=== PATIENT | female | born 1975 | race American Indian/Alaskan Native ===

== ENCOUNTER 2019-01-29 13:34 | Emergency (ER) | payer MEDICAID, OTHER ==
[2019-01-29] MEDS ORDERED: NACL 0.9% 1000 ML IV ONE (13:43)
--- NOTE | 2019-01-29 13:43 | Emergency Department Report ---
Blank Doc - Documentation Documentation: 44 y/o female presents with dysuria and abdominal pain, lethergy and myalgia. Vitals 101.3 and HR 125 Plan. Sepsis protocol.
[2019-01-29] MEDS ORDERED: TYLENOL PO ONE (13:57)
[2019-01-29] MEDS ORDERED: TYLENOL ONE (14:00)
[2019-01-29 14:31] LABS: Hemoglobin 12.5 gm/dl (10.1-14.3); Mean Corpuscular HGB Conc 34 % (30-34); Mean Corpuscular Volume 84 fl (79-97); Platelet Count 240 K/mm3 (140-440); Red Blood Count 4.42 M/mm3 (3.65-5.03); Red Cell Distribution Width 14.9 % (13.2-15.2)
[2019-01-29 14:50] LABS: Alanine Aminotransferase 12 units/L (7-56); Albumin 4.2 g/dL (3.9-5); BUN/Creatinine Ratio 17; Blood Urea Nitrogen 10 mg/dL (7-17); Calcium 9.3 mg/dL (8.4-10.2); Hemolysis Index 20
[2019-01-29 15:30] LABS: Band Neutrophils # (Manual) 0.5 K/mm3; Basophils % (Manual) 0 % (0.0-1.8); Eosinophils % (Manual) 0 % (0.0-4.3); Monocytes % (Manual) 0 % (0.0-7.3); Total Cells Counted 100
[2019-01-29 15:31] LABS: Ovalocytes Few
[2019-01-29] MEDS ORDERED: NACL 0.9% 1000 ML 2,000 ML ONE (15:47)
[2019-01-29] MEDS ORDERED: ROCEPHIN/NS 1 GM/50 ML 1 GM/50 ML BAG IV ONE (15:55)
[2019-01-29] MEDS ORDERED: MORPHINE IV ONE (15:55)
[2019-01-29] MEDS ORDERED: ZOFRAN IV ONE (15:55)
[2019-01-29 16:02] LABS: Bilirubin,Urine NEG (Negative); Blood,Urine LG (Negative); Color,Urine Yellow (Yellow); Protein,Urine <15 mg/dL mg/dL (Negative); Urobilinogen,Urine < 2.0 mg/dL (<2.0)
--- NOTE | 2019-01-29 16:09 | Emergency Department Report ---
HPI <JHONY MARIE - Last Filed: 01/31/19 15:51> - HPI HPI: 44-year-old -Swedish female presents to the emergency department with a complaint of some lower abdominal pain and lower back pain, along with burning with urination and a fever. The patient was driving from [place] to [place] and says that she held her urine the entire time. When she got home she started having the burning with urination. She woke up with the pains and felt warm. Her daughter checked her temperature and she had a low-grade fever. She denies any significant past medical history. She did not take anything for her symptoms prior to presentation. Her primary care physician is a Dr. Ervin Perez. <ANA ODONNELL Meg - Last Filed: 02/03/19 08:02> - General Chief Complaint: Back Pain/Injury Time Seen by Provider: 01/29/19 13:41 ED Past Medical Hx <JHONY MARIE - Last Filed: 01/31/19 15:51> - Past Medical History Previous Medical History?: No - Surgical History Past Surgical History?: Yes Additional Surgical History: Tubal ligation. - Social History Smoking Status: Never Smoker Substance Use Type: None <ANA ODONNELL S - Last Filed: 02/03/19 08:02> - Medications Home Medications: Home Medications Medication Instructions Recorded Confirmed Last Taken Type HYDROcodone/APAP 5-325 [[place] 1 each PO Q6HR PRN #10 tablet 01/29/19 Unknown Rx 5/325] Ibuprofen [Motrin] 400 mg PO Q8H PRN #20 tablet 01/29/19 Unknown Rx Ondansetron [Zofran Odt] 4 mg PO Q8HR PRN #20 tab.rapdis 01/29/19 Unknown Rx cephALEXin [Keflex] 1,000 mg PO Q12HR #28 cap 01/29/19 Unknown Rx ED Review of Systems ROS: Stated complaint: FEVER Other details as noted in HPI <JHONY MARIE - Last Filed: 01/31/19 15:51> ROS: Stated complaint: FEVER Other details as noted in HPI Constitutional: chills, fever Eyes: denies: eye pain, vision change ENT: denies: ear pain, throat pain Respiratory: denies: cough, shortness of breath Cardiovascular: denies: chest pain, palpitations Gastrointestinal: abdominal pain. denies: vomiting Genitourinary: dysuria. denies: discharge Musculoskeletal: back pain. denies: arthralgia Skin: denies: rash, lesions Neurological: denies: weakness, numbness <ANA ODONNELL - Last Filed: 02/03/19 08:02> Physical Exam - Physical Exam Vital Signs: Vital Signs 01/29/19 01/29/19 01/29/19 13:55 14:01 15:53 Temperature 101.3 F H Pulse Rate 125 H Respiratory 18 18 Rate Blood Pressure 135/83 113/68 Blood Pressure [Left] O2 Sat by Pulse 96 95 Oximetry 01/29/19 01/29/19 01/29/19 16:00 16:15 16:30 Temperature Pulse Rate Respiratory Rate Blood Pressure 111/90 111/90 115/74 Blood Pressure [Left] O2 Sat by Pulse 100 99 99 Oximetry 01/29/19 01/29/19 01/29/19 16:45 17:00 17:19 Temperature Pulse Rate Respiratory Rate Blood Pressure 115/74 105/65 105/65 Blood Pressure [Left] O2 Sat by Pulse 99 99 91 Oximetry 01/29/19 01/29/19 01/29/19 17:30 17:45 18:00 Temperature Pulse Rate Respiratory Rate Blood Pressure 102/56 102/56 102/56 Blood Pressure [Left] O2 Sat by Pulse 99 97 98 Oximetry 01/29/19 01/29/19 01/29/19 18:15 18:30 18:45 Temperature Pulse Rate Respiratory Rate Blood Pressure 110/68 110/68 Blood Pressure [Left] O2 Sat by Pulse 99 99 100 Oximetry 01/29/19 01/29/19 01/29/19 19:05 19:10 19:17 Temperature 98 F 98.5 F Pulse Rate 81 Respiratory 16 Rate Blood Pressure 110/68 Blood Pressure 110/72 [Left] O2 Sat by Pulse 100 99 Oximetry <JHONY MARIE - Last Filed: 01/31/19 15:51> - Physical Exam Vital Signs: Vital Signs 01/29/19 01/29/19 13:55 14:01 Temperature 101.3 F H Pulse Rate 125 H Respiratory 18 18 Rate Blood Pressure 135/83 O2 Sat by Pulse 96 Oximetry Physical Exam: GENERAL: The patient is well-developed well-nourished. HENT: Normocephalic. Atraumatic. Patient has moist mucous membranes. EYES: Extraocular motions are intact. Pupils equal reactive to light bilaterally. NECK: Supple. Trachea is midline. CHEST/LUNGS: Clear to auscultation. There is no respiratory distress noted. HEART/CARDIOVASCULAR: Regular. There is mild to moderate tachycardia. There is no murmur. ABDOMEN: Abdomen is soft, nontender. Patient has normal bowel sounds. There is no abdominal distention. SKIN: Skin is warm and dry. NEURO: The patient is awake, alert, and oriented. The patient is cooperative. The patient has no focal neurologic deficits. The patient has normal speech. MUSCULOSKELETAL: There is no tenderness or deformity. There is no limitation range of motion. There is no evidence of acute injury. BACK: No CVA tenderness to palpation. <ANA ODONNELL - Last Filed: 02/03/19 08:02> ED Course Vital Signs 01/29/19 01/29/19 01/29/19 13:55 14:01 15:53 Temperature 101.3 F H Pulse Rate 125 H Respiratory 18 18 Rate Blood Pressure 135/83 113/68 Blood Pressure [Left] O2 Sat by Pulse 96 95 Oximetry 01/29/19 01/29/19 01/29/19 16:00 16:15 16:30 Temperature Pulse Rate Respiratory Rate Blood Pressure 111/90 111/90 115/74 Blood Pressure [Left] O2 Sat by Pulse 100 99 99 Oximetry 01/29/19 01/29/19 01/29/19 16:45 17:00 17:19 Temperature Pulse Rate Respiratory Rate Blood Pressure 115/74 105/65 105/65 Blood Pressure [Left] O2 Sat by Pulse 99 99 91 Oximetry 01/29/19 01/29/19 01/29/19 17:30 17:45 18:00 Temperature Pulse Rate Respiratory Rate Blood Pressure 102/56 102/56 102/56 Blood Pressure [Left] O2 Sat by Pulse 99 97 98 Oximetry 01/29/19 01/29/19 01/29/19 18:15 18:30 18:45 Temperature Pulse Rate Respiratory Rate Blood Pressure 110/68 110/68 Blood Pressure [Left] O2 Sat by Pulse 99 99 100 Oximetry 01/29/19 01/29/19 01/29/19 19:05 19:10 19:17 Temperature 98 F 98.5 F Pulse Rate 81 Respiratory 16 Rate Blood Pressure 110/68 Blood Pressure 110/72 [Left] O2 Sat by Pulse 100 99 Oximetry - Reevaluation(s) Reevaluation #1: 01/29/19 20:31 CT scan of the abdomen and pelvis reviewed and appreciated. Patient reassessed. Feels improved. Tolerating oral feeds. Patient in no distress. Extensive discussion had with the patient. She reports she is reliable to follow-up in 2- 3 days for repeat checkup/evaluation. Instructed patient and family on how to download the [employer] application on the Smart phone, and search for competitive pricing on prescriptions. The patient is suitable for a trial of oral outpatient antibiotic management, and the primary managing physician, Dr. Odonnell, has already written the patient for prescriptions. <JHONY MARIE - Last Filed: 01/31/19 15:51> Vital Signs 01/29/19 01/29/19 13:55 14:01 Temperature 101.3 F H Pulse Rate 125 H Respiratory 18 18 Rate Blood Pressure 135/83 O2 Sat by Pulse 96 Oximetry <ANA ODONNELL S - Last Filed: 02/03/19 08:02> ED Medical Decision Making - Lab Data Result diagrams: 01/29/19 14:08 01/29/19 14:08 <CYNTHIAJHONY - Last Filed: 01/31/19 15:51> - Lab Data Result diagrams: 01/29/19 14:08 01/29/19 14:08 - Radiology Data Radiology results: report reviewed PROCEDURE: CT ABDOMEN PELVIS W CON TECHNIQUE: HISTORY: abd and back pain, UTI, fever COMPARISONS: FINDINGS: Contrast-enhanced CT of the abdomen and pelvis was performed following the intravenous administration of iodinated contrast. The heart is normal in size. The lung bases appear clear. ABDOMEN: There is mild fatty infiltration of the liver without focal hepatic lesion. The spleen, adrenal glands, pancreas, gallbladder are unremarkable. There is no renal or ureteral calculus. No focal hepatic lesion is seen. There is no small or large bowel obstruction. Pelvis: There is a normal appendix. There is no evidence of diverticulitis. The uterus is unremarkable. No adnexal mass is seen. The urinary bladder is within normal limits. IMPRESSION: ABDOMEN: Mild fatty infiltration of the liver Pelvis: Normal appendix This document is electronically signed by Loyd Wells MD., Jan 29 2019 08:20:17 PM ET Transcribed By: ITZEL Dictated By: LOYD WELLS MD Electronically Authenticated By: LOYD WELLS MD Signed Date/Time: 01/29/192021 - Medical Decision Making Presented with some abdominal/pelvic pain with some radiation towards the back. She presents with a fever and dysuria. Urinalysis does show a urinary tract infection. The patient is also on her menstrual cycle and says that that contributed to her discomfort. Fever resolved with medication. No leukoc ytosis. Vital signs stable throughout her ED course. Patient was given some pain medication, IV fluid resuscitation and antibiotics. Discharged home with pain medication and antibiotics. She has been encouraged to follow up with primary care and return to the ER with any worsening of her symptoms or any acute distress. - Differential Diagnosis UTI, pyelonephritis, appendicitis, <ANA ODONNELL - Last Filed: 02/03/19 08:02> Critical care attestation.: If time is entered above; I have spent that time in minutes in the direct care of this critically ill patient, excluding procedure time. <JHONY MARIE - Last Filed: 01/31/19 15:51> Critical Care Time: No Critical care attestation.: If time is entered above; I have spent that time in minutes in the direct care of this critically ill patient, excluding procedure time. <ANA ODONNELL S - Last Filed: 02/03/19 08:02> ED Disposition Is pt being admited?: No Does the pt Need Aspirin: No <JHONY MARIE - Last Filed: 01/31/19 15:51> Is pt being admited?: No Time of Disposition: 20:03 <ANA ODONNELL S - Last Filed: 02/03/19 08:02> Clinical Impression: Pyelonephritis UTI (urinary tract infection) Qualifiers: Urinary tract infection type: acute cystitis Hematuria presence: with hematuria Qualified Code(s): N30.01 - Acute cystitis with hematuria Disposition: TO HOME OR SELFCARE Condition: Stable Instructions: Urinary Tract Infection in Women (ED), Acute Pyelonephritis (ED) Additional Instructions: Please follow-up with your primary care physician in the next few days. Return to the emergency Department with any worsening of your symptoms or any acute distress. Taking antibiotics as prescribed. You have been prescribed a medication that is sedating and therefore should not be taken prior to driving, working, and responsible for children and in no way should be mixed with alcohol of any quantity. Prescriptions: cephALEXin [Keflex] 1,000 mg PO Q12HR #28 cap Ibuprofen [Motrin] 400 mg PO Q8H PRN #20 tablet PRN Reason: Pain , Severe (7-10) HYDROcodone/APAP 5-325 [[place] 5/325] 1 each PO Q6HR PRN #10 tablet PRN Reason: Pain Ondansetron [Zofran Odt] 4 mg PO Q8HR PRN #20 tab.rapdis PRN Reason: Nausea Referrals: Primary Care Provider, Your [Other] - 2-3 Days
[2019-01-29] MEDS ORDERED: NACL 0.9% 1000 ML 1,000 ML IV ONE (16:23)
[2019-01-29] MEDS ORDERED: TORADOL ONE (16:41)
[2019-01-29] MEDS ORDERED: TORADOL IV ONE (17:58)
[2019-01-29] MEDS ORDERED: NORCO 5/325 PO ONE (18:30)
[2019-01-29 19:21] VITALS: BP 110/72
--- NOTE | 2019-01-29 20:22 | Cat Scan Report ---
PROCEDURE: CT ABDOMEN PELVIS W CON TECHNIQUE: HISTORY: abd and back pain, UTI, fever COMPARISONS: FINDINGS: Contrast-enhanced CT of the abdomen and pelvis was performed following the intravenous admi nistration of iodinated contrast. The heart is normal in size. The lung bases appear clear. ABDOMEN: There is mild fatty infiltration of the liver without focal hepatic lesion. The spleen, adrenal gland s, pancreas, gallbladder are unremarkable. There is no renal or ureteral calculus. No focal hepatic lesion is seen. There is no small or large bowel obstruction. Pelvis: There is a normal appendix. There is no evidence of diverticulitis. The uterus is unremarkable. No adnexal mass is seen. The urinary bladder is within normal limits. IMPRESSION: ABDOMEN: Mild fatty infiltration of the liver Pelvis: Normal appendix This document is electronically signed by Loyd Wells MD., Jan 29 2019 08:20:17 PM ET
[2019-01-29] MEDS ORDERED: MOTRIN PO ONE (20:30)
== END 2019-01-29 19:53 | disposition home or self-care (01) ==
LOC: ED 13:34
DX: N12 Tubulo-interstitial nephritis, not specified as acute or chronic (principal); N39.0 Urinary tract infection, site not specified; Z98.51 Tubal ligation status
CPT/HCPCS: 36415; 74177; 80053; 81001; 82140; 85007; 85025; 87040; 87076; 87086; 87186; 96365; 96366; 96375; 99285; J0696; J1885; J2270; J2405; J7030; Q9967

== ENCOUNTER 2022-06-15 22:23 | Emergency (ER) | payer OTHER ==
--- NOTE | 2022-06-16 08:37 | Emergency Department Report ---
ED General Adult HPI - General Chief complaint: Allergic Reaction Stated complaint: ALLERGIC RX TO MEDS/CP/FACIAL [place]ING[place] Time Seen by Provider: 06/16/22 07:36 Source: patient Mode of arrival: Ambulatory Limitations: No Limitations - History of Present Illness Initial comments: 47-year-old female no significant past medical history reports to the ER due to possible allergic reaction. Patient reports going to urgent care yesterday to be seen for bronchitis. Patient was started on oral steroids as well as oral antibiotic. Patient reports she received an steroid shot unknown dosage while at the urgent care. Patient then went to the pharmacy to fill her medications. Patient also took another dose of steroids 40 mg as well as her oral antibioti cs. Patient then reports feeling headache increased heart rate and bilateral leg discomfort after taking oral medications. Patient denies any new onset of shortness of breath that is different from her current shortness of breath from bronchitis., no rash, no swelling of face, no swelling of lips, no hives. Patient reports a jittery feeling. No other acute clinical signs or symptoms reported. - Related Data Previous Rx's Medication Instructions Recorded Last Taken Type HYDROcodone/APAP 5-325 [[place] 1 each PO Q6HR PRN #10 tablet 01/29/19 Unknown Rx 5/325] Ibuprofen [Motrin] 400 mg PO Q8H PRN #20 tablet 01/29/19 Unknown Rx Ondansetron [Zofran Odt] 4 mg PO Q8HR PRN #20 tab.rapdis 01/29/19 Unknown Rx cephALEXin [Keflex] 1,000 mg PO Q12HR #28 cap 01/29/19 Unknown Rx Allergies Allergy/AdvReac Type Severity Reaction Status Date / Time prednisone Allergy Headache Verified 06/16/22 00:25 ED Review of Systems ROS: Stated complaint: ALLERGIC RX TO MEDS/CP/FACIAL [place] Other details as noted in HPI Comment: All other systems reviewed and negative ED Past Medical Hx - Past Medical History Previous Medical History?: No - Surgical History Past Surgical History?: Yes Additional Surgical History: Tubal ligation. - Social History Smoking Status: Never Smoker Substance Use Type: None - Medications Home Medications: Home Medications Medication Instructions Recorded Confirmed Last Taken Type HYDROcodone/APAP 5-325 [[place] 1 each PO Q6HR PRN #10 tablet 01/29/19 Unknown Rx 5/325] Ibuprofen [Motrin] 400 mg PO Q8H PRN #20 tablet 01/29/19 Unknown Rx Ondansetron [Zofran Odt] 4 mg PO Q8HR PRN #20 tab.rapdis 01/29/19 Unknown Rx cephALEXin [Keflex] 1,000 mg PO Q12HR #28 cap 01/29/19 Unknown Rx ED Physical Exam - General Limitations: No Limitations General appearance: alert, in no apparent distress - Head Head exam: Present: atraumatic, normocephalic - Eye Eye exam: Present: normal appearance - ENT ENT exam: Present: mucous membranes moist - Neck Neck exam: Present: normal inspection - Respiratory Respiratory exam: Present: normal lung sounds bilaterally. Absent: respiratory distress, wheezes, rales, rhonchi - Cardiovascular Cardiovascular Exam: Present: regular rate, normal rhythm. Absent: systolic murmur, diastolic murmur, rubs, gallop - GI/Abdominal GI/Abdominal exam: Present: soft, normal bowel sounds - Extremities Exam Extremities exam: Present: normal inspection - Back Exam Back exam: Present: normal inspection - Neurological Exam Neurological exam: Present: alert, oriented X3 - Psychiatric Psychiatric exam: Present: normal affect, normal mood - Skin Skin exam: Present: warm, dry, intact, normal color. Absent: rash ED Course Vital Signs 06/16/22 06/16/22 00:22 09:33 Temperature 98.0 F Pulse Rate 113 H 103 H Respiratory 18 18 Rate Blood Pressure 131/84 128/80 [Left] O2 Sat by Pulse 100 97 Oximetry ED Medical Decision Making - Medical Decision Making 47-year-old female no significant past medical history reports to the ER due to possible allergic reaction. Patient reports going to urgent care yesterday to be seen for bronchitis. Patient was started on oral steroids as well as oral antibiotic. Patient reports she received an steroid shot unknown dosage while at the urgent care. Patient then went to the pharmacy to fill her medications. Patient also took another dose of steroids 40 mg as well as her oral antibiotics. Patient then reports feeling headache increased heart rate and bilateral leg discomfort after taking oral medications. Patient denies any new onset of shortness of breath that is different from her current shortness of breath from bronchitis., no rash, no swelling of face, no swelling of lips, no hives. Patient reports a jittery feeling. No other acute clinical signs or symptoms reported. On physical exam there are no acute findings noted. No rash no swelling. Patient is neurologically intact. No airway concerns. Patient informed she her symptoms due to receiving a steroid shot unknown dosage as well as taking 40 mg of steroid p.o. within the same day causing her to have the jittery feeling that headache. Patient informed her symptoms are not likely due to the azithromycin as she is not having any swelling any hives no itchy or scratchy throat. Patient informed to not take any steroids for least 1 to 2 days but resume her azithromycin. Patient agrees with plan of care verbalized understanding. No labs or imaging is needed at this time. Patient informed her symptoms are to get worse to report to the ER. Patient is stable for discharge home. Vital Signs 06/16/22 06/16/22 00:22 09:33 Temperature 98.0 F Pulse Rate 113 H 103 H Respiratory 18 18 Rate Blood Pressure 131/84 128/80 [Left] O2 Sat by Pulse 100 97 Oximetry Critical care attestation.: If time is entered above; I have spent that time in minutes in the direct care of this critically ill patient, excluding procedure time. ED Disposition Clinical Impression: Adverse drug effect Qualifiers: Encounter type: initial encounter Qualified Code(s): T50.905A - Adverse effect of unspecified drugs, medicaments and biological substances, initial encounter Disposition: 01 HOME / SELF CARE / HOMELESS Is pt being admited?: No Condition: Stable Instructions: Accidental Drug Poisoning, Adult Referrals: NATHANIEL MARQUIS MD [Primary Care Provider] - 3-5 Days
[2022-06-16] MEDS ORDERED: ACETAMINOPHEN 325 MG TAB PO ONE (09:21)
[2022-06-16 09:34] VITALS: BP 128/80
== END 2022-06-16 09:34 | disposition home or self-care (01) ==
LOC: ED 22:23
DX: T50.905A Adverse effect of unspecified drugs, medicaments and biological substances, initial encounter (principal); Y92.89 Other specified places as the place of occurrence of the external cause; Z88.8 Allergy status to other drugs, medicaments and biological substances
CPT/HCPCS: 99282